=== PATIENT | male | born 1975 | race Caucasian/White ===

== ENCOUNTER 2017-06-25 04:31 | Observation (INO) ==
[2017-06-25] MEDS ORDERED: ZOFRAN 4 MG/2 ML IVP STA (04:58)
[2017-06-25] MEDS ORDERED: SODIUM CHLORIDE 1,000 ML IV STA ×2 (04:58→06:57)
[2017-06-25] MEDS ORDERED: PROTONIX IV IVP STA (05:03)
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
[2017-06-25 05:09] LABS: BASOPHILS # (AUTO) 0.2 K/uL (0-0.2); BASOPHILS % (AUTO) 2.4 % (0.0-3.0); EOSINOPHILS # (AUTO) 0.5 K/ul (0.0-0.7); EOSINOPHILS % (AUTO) 5.7 % (0.0-7.0); HEMATOCRIT 39.1 % (42.0-52.0); HEMOGLOBIN 13.8 g/dl (14.0-18.0); IMMATURE GRANULOCYTE % (AUTO) 0.3 % (0.0-5.0); LYMPHOCYTES # (AUTO) 2.5 K/uL (0.60-3.4); LYMPHOCYTES % (AUTO) 31.9 (10.0-50.0); MEAN CORPUSCULAR HEMOGLOBIN 34.9 pg (27.0-31.0); MEAN CORPUSCULAR HGB CONC 35.3 (31.8-35.4); MONOCYTES # (AUTO) 0.8 K/uL (0.4-2.0); MONOCYTES % (AUTO) 9.7 (0-10); NEUTROPHILS # (AUTO) 3.9 K/ul (2.0-6.9); PLATELET COUNT 311 10^3/uL (140-440); RED BLOOD COUNT 3.95 10^6/ul (4.70-6.10); WHITE BLOOD COUNT 7.86 K/ul (4.2-10.2)
[2017-06-25 05:50] LABS: ALBUMIN 3.5 g/dL (3.4-5.0); ALBUMIN/GLOBULIN RATIO 0.95; ANION GAP 14.5; BILIRUBIN,TOTAL 0.26 mg/dL (0.00-1.20); BUN/CREATININE RATIO 14.66; CALCIUM 8.6 mg/dL (8.2-10.2); CREATININE 0.75 mg/dL (0.60-1.10); POTASSIUM 3.5 mmol/L (3.5-5.1); TOTAL PROTEIN 7.2 g/dL (6.4-8.2)
--- NOTE | 2017-06-25 06:12 | CT ---
EXAM: CT head without contrast 06/23/2017. Sagittal and coronal reformatted images obtained HISTORY: Trauma COMPARISON: None. FINDINGS: There is no evidence of intracranial hemorrhage. The midline is maintained. There is no h ydrocephalus. No cerebellar tonsillar ectopia. Evaluation of the calvarium shows no fracture. Th e mastoid air cells are normally pneumatized. Mucosal thickening within the paranasal sinuses sugges tive of pansinusitis. IMPRESSION: No acute intracranial abnormality. Mucosal thickening within the paranasal sinuses sugge stive of pansinusitis.
--- NOTE | 2017-06-25 06:20 | CT ---
EXAM: CT cervical spine without intravenous contrast 06/23/2017. Sagittal and coronal reformatted i mages obtained HISTORY: Trauma COMPARISON: 01/02/2016, 02/25/2017 FINDINGS: Normal anatomic alignment is maintained. Vertebral bodies appear intact. The facet joint s align normally. The prevertebral soft tissues appear within normal limits. Multilevel chronic degenerative disc disease. Chronic degenerative endplate changes. Bulky anterior osteophyte formation. There is no evidence of acute fracture or subluxation at any level. IMPRESSION: No acute post traumatic osseous abnormality of the cervical spine.
--- NOTE | 2017-06-25 06:32 | CT ---
EXAM: CT chest, abdomen pelvis without intravenous contrast 06/25/2017. Sagittal and coronal reform atted images obtained HISTORY: Trauma COMPARISON: 02/25/2017 FINDINGS: The heart size appears within normal limits. There is no pericardial effusion. Bilateral gynecomastia appears symmetric and stable. Mild bilateral dependent atelectasis. No pulmonary consolidation, effusion or pneumothorax. The liver, gallbladder, adrenal glands and kidneys show no acute process. The spleen has been remove d. The pancreas shows no gross abnormality. There is no evidence of bowel obstruction. Unremarkable urinary bladder. No free air or free fluid. Normal appendix. Chronic degenerative endplate changes most prominent within the thoracic spine. No acute fracture. IMPRESSION: No acute post traumatic process identified within the chest, abdomen or pelvis. Technic ally limited examination due to lack of intravenous contrast.
[2017-06-25] MEDS ORDERED: SODIUM CHLORIDE 1,000 ML IV SCH (07:30)
[2017-06-25] MEDS ORDERED: ZESTRIL PO SCH (09:00)
[2017-06-25 11:58] LABS: COCAIN SCREEN,URINE NEGATIVE (NEGATIVE)
[2017-06-25 14:21] VITALS: BMI 21.7
[2017-06-25 14:23] LABS: CREATINE KINASE 95 U/L
[2017-06-25] MEDS ORDERED: NORCO 5-325 PO STA (15:44)
[2017-06-25 15:56] VITALS: BP 130/90; TEMP 97.9
[2017-06-26] MEDS ORDERED: EFFEXOR XR PO SCH (09:00)
[2017-06-26] MEDS ORDERED: VENLAFAXINE HCL 75 MG PO SCH (09:00)
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
== END 2017-06-25 17:40 | disposition left against medical advice (07) ==
LOC: ED 04:31 → MEDSURG A 07:58
PROVIDERS: ADMIT Emergency Medicine; ATTEND Emergency Medicine
DX: F10.129 Alcohol abuse with intoxication, unspecified (principal); S01.112A Laceration without foreign body of left eyelid and periocular area, initial encounter; Y90.8 Blood alcohol level of 240 mg/100 ml or more; I10 Essential (primary) hypertension; M19.90 Unspecified osteoarthritis, unspecified site; F32.9 Major depressive disorder, single episode, unspecified; F17.290 Nicotine dependence, other tobacco product, uncomplicated; Y04.2XXA Assault by strike against or bumped into by another person, initial encounter; Z79.899 Other long term (current) drug therapy
CPT/HCPCS: 36415; 80053; 80306; 80307; 82150; 82550; 83690; 84484; 85025; 93005; 93010; 96361; 96374; 96375; 99224; 99284